=== PATIENT | male | born 1995 | race Caucasian/White ===

== ENCOUNTER 2021-07-05 21:14 | Emergency (ER) | payer OTHER ==
[2021-07-05 22:37] VITALS: BP 128/71
--- NOTE | 2021-07-05 22:42 | ED Physician Documentation ---
PD HPI ABD PAIN - Stated complaint Stated Complaint: ABD PX - Chief complaint Chief Complaint: Abd Pain - History obtained from History obtained from: Patient - Additional information Additional information: Patient comes emergency department for chief complaint of swelling and pain above bellybutton. He states he just noticed it today. 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 Patient denies any distinct injury. No tearing pain. He states that he can push the bulge back in and it feels like a sponge, but he just wants to make sure his intestines are not stuck in the hole. No other complaints at this time. Review of Systems Ten Systems: 10 systems reviewed and negative Constitutional: reports: Reviewed and negative Eyes: reports: Reviewed and negative Ears: reports: Reviewed and negative Nose: reports: Reviewed and negative Throat: reports: Reviewed and negative Cardiac: reports: Reviewed and negative Respiratory: reports: Reviewed and negative GI: reports: Abdominal Pain : reports: Reviewed and negative Skin: reports: Reviewed and negative Musculoskeletal: reports: Reviewed and negative Neurologic: reports: Reviewed and negative Psychiatric: reports: Reviewed and negative Endocrine: reports: Reviewed and negative Immunocompromised: reports: Reviewed and negative PD PAST MEDICAL HISTORY - Allergies Allergies/Adverse Reactions: Allergies Allergy/AdvReac Type Severity Reaction Status Date / Time No Known Drug Allergies Allergy Verified 07/05/21 21:29 PD ED PE NORMAL - Vitals Vital signs reviewed: Yes - General General: Alert and oriented X 3, No acute distress, Well developed/nourished - HEENT HEENT: Atraumatic, PERRL, EOMI, Moist mucous membranes - Neck Neck: Supple, no meningeal sign - Respiratory Respiratory: No respiratory distress - Abdomen Abdomen: Soft, Non tender, Non distended, Other (Patient has a very tiny, reducible umbilical hernia just superior to the umbilicus in the midline. No skin changes.) - Derm Derm: Warm and dry - Extremities Extremities: No deformity - Neuro Neuro: Alert and oriented X 3 - Psych Psych: Normal mood, Normal affect Results - Vitals Vitals: Vital Signs - 24 hr 07/05/21 07/05/21 07/05/21 21:29 22:37 22:50 Temperature 36.5 C 36.5 C 36.5 C Heart Rate 70 72 72 Respiratory 16 16 16 Rate Blood Pressure 126/72 128/71 128/71 O2 Saturation 98 99 99 Oxygen O2 Source Room air PD MEDICAL DECISION MAKING - ED course Complexity details: considered differential, d/w patient ED course: I discussed with the patient that he does have a tiny umbilical hernia. We have discussed the signs and symptoms of incarceration, though the patient's hernia is so small that I feel it is unlikely that it will incarcerate. We have discussed being mindful of activities that stress the area. We have also discussed that the patient may follow-up in general surgery if he would like to discuss having it fixed, although at a small size I cannot guarantee that they will feel repair is necessary. We have discussed the usual indications for return. Departure - Departure Disposition: 01 Home, Self Care Clinical Impression: Umbilical hernia Qualifiers: Obstruction and gangrene presence: without obstruction or gangrene Qualified Code(s): K42.9 - Umbilical hernia without obstruction or gangrene Condition: Stable Comments: You have a very tiny hernia right at your bellybutton. Most the time, this does not cause any trouble. However, if it is really bothering you, you may follow- up with the surgeons to talk about having the hernia repaired. If you find that the hernia has become rockhard and we cannot push it back in, you need to have it looked at right away. You may continue with your usual activities, but try to be mindful of anything that is stressing the area around your bellybutton too much. Discharge Date/Time: 07/05/21 22:50
== END 2021-07-05 22:50 | disposition home or self-care (01) ==
LOC: ED 21:14
DX: K42.9 Umbilical hernia without obstruction or gangrene (principal)
CPT/HCPCS: 99281; 99284

== ENCOUNTER 2021-08-10 07:39 | Day surgery (SDC) | payer OTHER ==
[~2021-08-10 07:39] MED LIST: CEFAZOLIN SODIUM IN 0.9 % NACL 2 GM/100 ML BAG IV ONE
[2021-08-10] MEDS ORDERED: LACTATED RINGERS 1,000 ML IV ONE ×2 (07:48→10:48)
--- NOTE | 2021-08-10 08:24 | ANESTHESIA ---
Pre-Anesthesia VS, & Labs - Diagnosis ventral hernia - Procedure ventral hernia repair Vital Signs: Temp Pulse Resp BP Pulse Ox 36.4 C L 62 11 L 129/70 97 08/10/21 08:00 08/10/21 08:00 08/10/21 08:00 08/10/21 08:00 08/10/21 08:00 Height: 5 ft 10 in Weight (kg): 94.6 kg Body Mass Index: 29.9 BMI Classification: Overweight - NPO >8 hours Home Medications and Allergies Home Medications: Ambulatory Orders No Known Home Medications 08/05/21 No Known Home Medications 08/05/21 Allergies/Adverse Reactions: Allergies Allergy/AdvReac Type Severity Reaction Status Date / Time No Known Drug Allergies Allergy Verified 07/06/21 07:35 Anes History & Medical History - Anesthetic History Anesthesia Complications: reports: No previous complications Family history of Anesthesia Complications: Denies Family history of Malignant Hyperthermia: Denies - Medical History Cardiovascular: reports: None Pulmonary: reports: None Gastrointestinal: reports: None Urinary: reports: None Musculoskeletal: reports: Other Endocrine/Autoimmune: reports: None Skin: reports: None Smoking Status: Never smoker Psychosocial: reports: Other (Vapes daily) - Surgical History Eyes Ears Nose Throat (EENT): reports: Myringotomy (tubes), Tonsil/Adenoidectomy Exam General: Alert, Oriented x3, Cooperative Dental: WNL Mouth Openin Fingerbreadth Neck Mobility: Normal Mallampati classification: I Thyromental Distance: 4-6 cm Respiratory: Lungs clear Cardiovascular: Regular rate Plan Anesthesia Type: General Consent for Procedure(s) Verified and Reviewed: Yes Code Status: Attempt Resuscitation ASA classification: 2-Mild systemic disease Is this case an emergency?: No
[2021-08-10] MEDS ORDERED: LIDOCAINE-MPF 2% 5 ML VIAL ONE (08:32)
[2021-08-10] MEDS ORDERED: MIDAZOLAM 2 MG/2 ML VIAL ONE (08:32)
[2021-08-10] MEDS ORDERED: ATROPINE ABBOJECT 1 MG/10 ML SYRINGE IVP PRN (08:32)
[2021-08-10] MEDS ORDERED: PROPOFOL 200 MG/20 ML VIAL IVP ONE ×2 (08:32→10:40)
[2021-08-10] MEDS ORDERED: ONDANSETRON 4 MG/2 ML VIAL IVP PRN ×2 (08:32→10:45)
[2021-08-10] MEDS ORDERED: ePHEDrine 50 MG/ML VIAL IVP PRN (08:32)
[2021-08-10] MEDS ORDERED: MORPHINE 2 MG/ML CARPUJECT IVP PRN (08:32)
[2021-08-10] MEDS ORDERED: fentaNYL 100 MCG/2 ML VIAL ONE (08:32)
[2021-08-10] MEDS ORDERED: METOCLOPRAMIDE 10 MG/2 ML VIAL IVP PRN (08:32)
[2021-08-10] MEDS ORDERED: fentaNYL 100 MCG/2 ML VIAL IVP PRN (08:32)
[2021-08-10] MEDS ORDERED: NALOXONE 0.4 MG/ML VIAL IVP PRN (08:32)
[2021-08-10] MEDS ORDERED: BUPIVACAINE 0.25% PF 30 ML VIAL ONE (08:53)
[2021-08-10] MEDS ORDERED: LACTATED RINGERS 1,000 ML IV SCH (09:00)
[2021-08-10] MEDS ORDERED: DEXAMETHASONE 4 MG/ML VIAL ONE (09:28)
[2021-08-10] MEDS ORDERED: ONDANSETRON 4 MG/2 ML VIAL ONE ×2 (09:28→11:00)
[2021-08-10] MEDS ORDERED: BUPIVACAINE 0.25% PF 30 ML VIAL SUBQ ONE (09:29)
[2021-08-10] MEDS ORDERED: KETOROLAC 30 MG/ML VIAL ONE (10:08)
[2021-08-10] MEDS ORDERED: HYDROcod/ACETAM 5/325 MG TABLET PO PRN (10:45)
--- NOTE | 2021-08-10 10:56 | OPERATIVE REPORT ---
Operative Report - General Procedure Date: 08/10/21 Planned Procedure: open ventral hernia repair with mesh Pre-Op Diagnosis: ventral hernia Procedure Performed: open ventral hernia repair with mesh Post Op Diagnosis: ventral hernia and umbilical hernia - Procedure Note Primary Surgeon: carrillo andino md Anesthesia Technique: General LMA, Local Pathology: none Estimated Blood Loss (mL): 1 Drain/Tube Type: Other (none) Indications: painful hernia bulge Findings: 2.5 cm ventral hernia 2 cm cephalad of a 8 mm umbilical hernia Complications: none - Other Other Information/Narrative: The patient was properly identified brought to the operating room and placed in supine position. Sequential compression devices were placed. General anesthesia was induced. The patient was prepped and draped in a sterile fashion and given preoperative antibiotics. Local anesthetic was given throughout the procedure. An supraumbilical incision was made and extended left lateral of the umbilicus. Dissection proceeded sharply. Subcutaneous tissue was mobilized away from the fascial defect by 2 to 3 cm in all directions. Umbilical skin was sharply excised away from the hernia sac or peritoneum. The peritoneum was then carefully released from the fascial defect edge with cutting current cautery. He had a 2.5 cm ventral hernia and 8 mm umbilical hernia. A preperitoneal space was developed for mesh placement. The small bridge between the hernias was relealsed. Polypropylene mesh was cut to size approximately 2 x 3 inches and placed preperitoneal. The mesh was secured with 12 interrupted 0 Ethibond sutures. The mesh lay in good position without tension. He had laxity of the abdominal wall allowing fascia closure over the mesh with additional O ethibonds. Subcutaneous tissue was reapproximated with interrupted 2-0 Vicryl suture. Umbilical skin was tacked back down to fascia with interrupted 2-0 Vicryl suture. Buried interrupted subdermal 3-0 Vicryl sutures were then placed. Skin was closed with a running 4-0 Monocryl subcuticular suture. Dressing was applied. Patient tolerated the procedure the procedure well was awakened and brought to recovery in good condition.
[2021-08-10] MEDS: HYDROmorphone 0.5 MG/0.5 ML SYRINGE IVP PRN ×2 (11:00→11:07)
[2021-08-10] MEDS ORDERED: HYDROmorphone 0.5 MG/0.5 ML SYRINGE ONE ×2 (11:00→11:10)
[2021-08-10] MEDS ORDERED: HYDROcod/ACETAM 5/325 MG TABLET ONE (11:35)
[2021-08-10 12:02] VITALS: BP 113/52
--- NOTE | 2021-08-10 12:55 | ANESTHESIA POST OP EVALUATION ---
Anesthesia Post Eval - Post Anesthesia Eval Vitals: Last Vital Signs Temp 36.4 C L 08/10/21 11:57 Pulse 60 08/10/21 11:57 Resp 11 L 08/10/21 11:57 BP 113/52 L 08/10/21 11:57 Pulse Ox 99 08/10/21 11:57 CV Function Including HR & BP: Stable Pain Control: Satisfactory Nausea & Vomiting: Negative Mental Status: Baseline Respiratory Status: Airway Patent Hydration Status: Satisfactory Anesthesia Complications: None
== END 2021-08-10 07:40 | disposition home or self-care (01) ==
LOC: SDS 07:39
PROVIDERS: ATTEND Surgery
DX: K43.9 Ventral hernia without obstruction or gangrene (principal); K42.9 Umbilical hernia without obstruction or gangrene; Z20.822 Contact with and (suspected) exposure to COVID-19; F17.290 Nicotine dependence, other tobacco product, uncomplicated
CPT/HCPCS: 49560; 49568; 87635; A9270; C1781; J0690; J1170; J7120

== ENCOUNTER 2021-12-03 08:00 | Outpatient (CLI) | payer OTHER | END 2021-12-03 23:59 | LOC: LAB.N 08:00 | PROVIDERS: ATTEND Physician Assistant Medical | DX: U07.1 COVID-19 (principal) ==